=== PATIENT | male | born 2000 | race Caucasian/White ===

== ENCOUNTER 2024-02-21 21:14 | Emergency (ER) | payer SELFPAY ==
[~2024-02-21] VITALS: Ht 177.8 cm; Wt 852.0 kg
[2024-02-21 21:20] VITALS: O2SAT 97
[2024-02-21 22:37] LABS: BASOPHILS % 0.7 % (0.0-2.0); EOSINOPHILS % 13.2 % (0.0-5.0); HEMATOCRIT. 46.1 % (42.0-52.0); HEMOGLOBIN. 15.5 g/dL (14.0-18.0); LYMPHOCYTES % 34.2 % (20.0-50.0); MEAN CORPUSCULAR HEMOGLOBIN 29.7 pg (28.0-32.0); MEAN CORPUSCULAR HGB CONC 33.5 g/dL (31.0-37.0); MEAN CORPUSCULAR VOLUME 88.6 fL (80.0-94.0); MEAN PLATELET VOLUME 7.7 fl (7.4-10.4); MONOCYTES % 7.1 % (2.0-8.0); NEUTROPHILS % 44.8 % (40.0-76.0); PLATELET 215 x1000/uL (130-400); RED BLOOD CELL COUNT 5.21 mill/uL (4.7-6.1); RED CELL DISTRIBUTION WIDTH 14.1 % (11.6-14.6); WHITE BLOOD COUNT 8.7 x1000/uL (4.5-11.0)
[2024-02-21 22:43] LABS: CHLORIDE 108 mEq/L (98-107); POTASSIUM 3.9 mEq/L (3.5-5.1); SODIUM 142 mEq/L (136-145)
[2024-02-21 22:44] LABS: CALCIUM 9.8 mg/dL (8.7-10.4); CARBON DIOXIDE 25 mEq/L (21-32)
[2024-02-21 22:49] LABS: CREATININE 1.2 mg/dL (0.6-1.3); GLUCOSE 95 mg/dL (70-105); UREA NITROGEN BLOOD 11 mg/dL (9-23)
[2024-02-21 22:51] LABS: ACETAMINOPHEN 13 ug/mL (10-30); ALANINE AMINOTRANSFERASE 28 IU/L (10-49); ALBUMIN 4.5 g/dL (3.2-4.8); ASPARTATE AMINOTRANSFERASE 24 IU/L (<34); BILIRUBIN TOTAL 0.4 mg/dL (0.1-1.0); PROTEIN TOTAL 7.2 g/dL (6.0-8.3)
[2024-02-21] MEDS: SODIUM CHLORIDE 0.9% 1,000 ML IV ONE (22:53)
[2024-02-21 22:56] LABS: ETHANOL BLOOD < 10 mg/dL (<10)
[2024-02-22 02:11] LABS: CHLORIDE 110 mEq/L (98-107); POTASSIUM 4.1 mEq/L (3.5-5.1); SODIUM 142 mEq/L (136-145)
[2024-02-22 02:12] LABS: CALCIUM 8.8 mg/dL (8.7-10.4); CARBON DIOXIDE 25 mEq/L (21-32)
[2024-02-22 02:25] LABS: ACETAMINOPHEN 6 ug/mL (10-30); ALANINE AMINOTRANSFERASE 25 IU/L (10-49); ALBUMIN 3.9 g/dL (3.2-4.8); ASPARTATE AMINOTRANSFERASE 22 IU/L (<34); BILIRUBIN TOTAL 0.5 mg/dL (0.1-1.0); CREATININE 1.1 mg/dL (0.6-1.3); GLUCOSE 96 mg/dL (70-105); PROTEIN TOTAL 6.4 g/dL (6.0-8.3); UREA NITROGEN BLOOD 11 mg/dL (9-23)
[2024-02-22 07:36] LABS: CLARITY URINE CLEAR (CLEAR); COLOR URINE YELLOW (YELLOW); GLUCOSE URINE NEGATIVE (NEGATIVE); KETONES URINE NEGATIVE (NEGATIVE); LEUKOCYTE ESTERASE URINE NEGATIVE (NEGATIVE); NITRITE URINE NEGATIVE (NEGATIVE); OCCULT BLOOD URINE NEGATIVE (NEGATIVE); PROTEIN URINE NEGATIVE (NEGATIVE); UROBILINOGEN URINE 0.2 E.U./dL (0.2-1.0)
[2024-02-22 07:39] LABS: *AMPHETAMINES SCREEN URINE NEGATIVE (NEGATIVE); *BARBITURATES SCREEN URINE NEGATIVE (NEGATIVE); *BENZODIAZEPINES SCREEN URINE NEGATIVE (NEGATIVE); *COCAINE SCREEN URINE NEGATIVE (NEGATIVE); CANNABINOID URINE SCREEN NEGATIVE (NEGATIVE); METHADONE URINE SCREEN NEGATIVE (NEGATIVE); OPIATES URINE SCREEN NEGATIVE (NEGATIVE); PHENCYCLIDINE URINE SCREEN NEGATIVE (NEGATIVE)
[2024-02-22 07:40] LABS: ECSTASY MDMA SCREEN URINE NEGATIVE (NEGATIVE)
[2024-02-22 11:45] VITALS: BP 117/61; PULSE 61; RESP 15; TEMP 37.05852; O2SAT 99
== END 2024-02-22 12:07 | disposition home or self-care (01) ==
LOC: ER 21:14
DX: T50.902A Poisoning by unspecified drugs, medicaments and biological substances, intentional self-harm, initial encounter (principal); R45.851 Suicidal ideations; Y92.89 Other specified places as the place of occurrence of the external cause; Z20.822 Contact with and (suspected) exposure to COVID-19
CPT/HCPCS: 80053 ×2; 80307 ×2; 80329 ×2; 80320; 85025; 36415 ×2; 93005 ×2; 96360; 96361; 99285; 80305; 81003; 87426; J7030; Z7610; G0480